=== PATIENT | male | born 1990 | race Caucasian/White ===

== ENCOUNTER 2018-08-19 15:36 | Emergency (ER) | payer OTHER ==
--- NOTE | 2018-08-19 16:17 | PDOC ---
Rapid Medical Evaluation Medical Evaluation: 08/19/18 16:12 I have performed a brief in-person evaluation of this patient. The patient presents with a chief complaint of: left arm numbness / palpitations / seen by UC this AM with normal EKG/CXR. Sent to ER for further eval. admits to stressors in life. Pertinent physical exam findings: pale/ no SOB, c/o persistant facial numbness I have ordered the following: labs The patient will proceed to the ED for further evaluation. 08/19/18 16:16 08/19/18 16:19 Discharge Disposition - Diagnosis Numbness and tingling - Referrals - Patient Instructions - Post Discharge Activity
[2018-08-19 16:18] VITALS: BMI 28.5
--- NOTE | 2018-08-19 17:05 | PDOC ---
*Physical Exam - Vital Signs Last Vital Signs Temp Pulse Resp BP Pulse Ox 98.4 F 79 18 114/75 98 08/19/18 16:13 08/19/18 16:13 08/19/18 16:13 08/19/18 16:13 08/19/18 16:13 Heart Score/ECG Review - ECG Impressions Comment:: 08/19/18 17:03 Twelve-lead EKG was performed and reviewed by me. There is normal sinus rhythm with a normal rate. rate of 73 Medical Decision Making - Medical Decision Making 08/19/18 17:01 The patient was seen and evaluated in conjunction with RAVI Walter under my direct supervision, ancillary studies were reviewed. I agree with the plan as outlined by RAVI Walter . *DC/Admit/Observation/Transfer Diagnosis at time of Disposition: Numbness and tingling - Referrals - Patient Instructions - Post Discharge Activity
--- NOTE | 2018-08-19 17:20 | PDOC ---
History of Present Illness - General Chief Complaint: Head/Neck problem Stated Complaint: LT ARM NUMBNESS Time Seen by Provider: 08/19/18 16:28 History Source: Patient Exam Limitations: No Limitations Past History - Past Medical History Allergies/Adverse Reactions: Allergies Allergy/AdvReac Type Severity Reaction Status Date / Time No Known Allergies Allergy Verified 08/19/18 16:12 COPD: No - Suicide/Smoking/Psychosocial Hx Smoking History: Never smoked Have you smoked in the past 12 months: No Hx Alcohol Use: No Drug/Substance Use Hx: No *Physical Exam - Vital Signs Last Vital Signs Temp Pulse Resp BP Pulse Ox 98.4 F 79 18 114/75 98 08/19/18 16:13 08/19/18 16:13 08/19/18 16:13 08/19/18 16:13 08/19/18 16:13 - Physical Exam General Appearance: No: Apparent Distress HEENT: positive: EOMI, HOLLIE Respiratory/Chest: positive: Lungs Clear, Normal Breath Sounds. negative: Respiratory Distress Cardiovascular: positive: Regular Rhythm, Regular Rate, S1, S2. negative: Murmur Gastrointestinal/Abdominal: positive: Normal Bowel Sounds, Soft. negative: Tender, Distended, Guarding, Rebound Integumentary: positive: Normal Color Neurologic: positive: winterizer II-XII NML intact, Fully Oriented, Alert, Normal Mood/ Affect, Motor Strength 5/5. negative: Abnormal Cranial NS, EOM Palsy, Facial Droop, Sensory Deficit, Confused, Disoriented Medical Decision Making - Medical Decision Making 28 y/o M with no sig pmh presents with palpitations, LUE/facial tingling which started around 11:30 AM along with chest pain, lasting around 15-20 min, before resolving. Patient went to [facility] [place] where he had EKG and CXR done which were normal; he was advised to come to ED for further evaluation. Patient mentions injuring his left testicle last week (states he sat on his L testicle while wearing a jock strap). He saw his PCP who prescribed him Naprosyn and patient went for testicular US, for which he is still pending to hear back on regarding results. States since 4 days ago, around an hour after taking Naprosyn, he noticed he would get burning in his chest and palpitations, though palpitations were briefer at the time. States he has also been very stressed out about a lot of things going on his life. Mentions testicular pain is better now. Denies fever, URI sxs, sob, abd pain, n/v/d, weakness of extremities. Denies smoking or drug use. Denies FH of CAD or CA PE unremarkable EKG NSR at 78 bpm, RBBB, no ectopy Patient asymptomatic Seems like adverse reaction from Naprosyn along with possible anxiety Patient with no significant risk factors for ACS Stable for d/c with PCP follow-up Return precautions discussed 08/19/18 17:12 *DC/Admit/Observation/Transfer Diagnosis at time of Disposition: Numbness and tingling, Palpitations - Discharge Dispostion Disposition: HOME Condition at time of disposition: Stable Decision to Admit order: No - Referrals - Patient Instructions Printed Discharge Instructions: DI for Palpitations Additional Instructions: Thank you for choosing [facility]. It was a pleasure taking care of you. Possibly your symptoms are related to anxiety Would advise to stop the Naprosyn for now Follow-up with your doctor in 2 days Return to the Emergency Department if your symptoms worsen or persist or have other concerning symptoms. - Post Discharge Activity
[2018-08-19 17:45] VITALS: BP 136/70; PULSE 64; TEMP 97.6
--- NOTE | 2018-08-20 11:54 | EKG ---
Test Reason : Blood Pressure : / mmHG Vent. Rate : 073 BPM Atrial Rate : 073 BPM P-R Int : 116 ms QRS Dur : 116 ms QT Int : 380 ms P-R-T Axes : 070 007 040 degrees QTc Int : 418 ms NORMAL SINUS RHYTHM POSSIBLE LEFT ATRIAL ENLARGEMENT INCOMPLETE RIGHT BUNDLE BRANCH BLOCK NO PREVIOUS ECGS AVAILABLE Confirmed by ANEUDY GIVENS MD ([id number]) on 08/20/2018 11:54:36 AM Referred By: Confirmed By:ANEUDY GIVENS MD
== END 2018-08-19 17:45 | disposition home or self-care (01) ==
LOC: JER 15:36
DX: R00.2 Palpitations (principal); R20.2 Paresthesia of skin
CPT/HCPCS: 93005; 93010; 99282-25